=== PATIENT | male | born 1955 | race Caucasian/White ===

== ENCOUNTER 2022-07-31 15:37 | Inpatient (IN) | payer MEDICAID ==
[~2022-07-31 15:37] MED LIST: Iopamidol 370 76% 100 ML VIAL ONE
[2022-07-31] MEDS ORDERED: chlordiazePOXIDE HCl 25 MG CAP ONE (16:04)
[2022-07-31] MEDS ORDERED: Lorazepam 2 MG/ML VIAL ONE (16:04)
[2022-07-31 17:00] LABS: CKMB 9.1 ng/mL (0-6.6)
[2022-07-31] MEDS ORDERED: Acetaminophen 650 MG Suppository PR PRN (17:36)
[2022-07-31] MEDS ORDERED: Ondansetron PF 4 MG/2 ML Vial IVP PRN (17:36)
[2022-07-31] MEDS ORDERED: Lorazepam 2 MG/ML VIAL IM PRN (17:47)
[2022-07-31] MEDS ORDERED: Lorazepam 1 MG TAB PO PRN (17:47)
[2022-07-31] MEDS ORDERED: Electrolyte Replacement Protocol 1 EACH FS SCH (18:00)
[2022-07-31 18:21] LABS: Hemoglobin 10.6 g/dL (13.5-17.5); Mean Corpuscular HGB CONC 32.9 g/dL (32.0-36.0); Mean Corpuscular Hemoglobin 31.3 pg (27.0-33.0); Platelet Count 445 10x3/uL (150-450); RBC Distribution Width 15.1 % (11.5-14.5); Red Blood Cell (RBC) Count 3.39 10x6/uL (4.32-5.72); White Blood Cell (WBC) Count 7.7 10x3/uL (3.5-10.5)
[2022-07-31 18:29] LABS: Phosphorus 3.2 mg/dL (2.3-4.7)
[2022-07-31 18:34] LABS: ALT (SGPT) 32 U/L (8-55); AST (SGOT) 28 U/L (5-34); Albumin 3.6 g/dL (3.4-4.8); Alkaline Phosphatase 121 U/L (40-110); Anion Gap 13 mmol/L (10-20); BUN (Urea Nitrogen) 21 mg/dL (8.4-25.7); Bilirubin, Total 0.5 mg/dL (0.2-1.2); Calc. Creatinine Clearance 0 mL/min (70-130); Calcium 8.8 mg/dL (7.8-10.44); Carbon Dioxide 28 mmol/L (23-31); Chloride 103 mmol/L (98-107); Estimated GFR 42; Globulin 3.4 g/dL (2.4-3.5); Glucose 107 mg/dL (80-115); Lipase 35 U/L (8-78); Magnesium 2.1 mg/dL (1.6-2.6); Potassium 3.2 mmol/L (3.5-5.1); Sodium 141 mmol/L (136-145)
[2022-07-31 18:48] LABS: Lymphocytes 14 % (21-51); Monocytes 15 % (0-10); Neutrophil 71 % (42-75)
[2022-07-31 18:49] LABS: Hypochromia SLIGHT = 6-15 cells (100X) (0-5/hpf); MDiff Complete? YES; Platelet Morphology Comment Appears Adequate
[2022-07-31 18:52] LABS: Syphilis Antibody Nonreactive (Nonreactive); Syphilis Antibody Index 0.11 S/CO (<1.00 Non-Reactive)
[2022-07-31 19:42] LABS: Troponin I 0.088 ng/mL (< 0.028)
[2022-07-31 20:12] LABS: Amphetamine Not Detected (NotDetected); Barbiturates Screen Not Detected (NotDetected); Benzodiazepine Screen Not Detected (NotDetected); Cocaine Metabolite Screen Not Detected (NotDetected); Methadone Not Detected (NotDetected); Methamphetamine Detected (NotDetected); Opiate Screen Not Detected (NotDetected); Oxycodone Screen Not Detected (NotDetected); Phencyclidine (PCP) Not Detected (NotDetected); THC/Cannabinoid Screen Not Detected (NotDetected); Tricyclic Screen Not Detected (NotDetected)
[2022-07-31] MEDS ORDERED: FLU VACC QS2022-23(65YR UP)/PF 240 MCG/0.7 ML SYRINGE IM ONE (20:30)
[2022-07-31] MEDS: Thiamine HCl 200 MG/2 ML VIAL SLOW IVP SCH (20:34)
[2022-07-31] MEDS: Heparin 5,000 UNITS/ML VIAL SC SCH (20:34)
[2022-07-31] MEDS: Lorazepam 1 MG TAB PO SCH (20:38)
[2022-07-31] MEDS ORDERED: Famotidine 20 MG TAB PO SCH ×2 (21:00)
[2022-07-31] MEDS ORDERED: Potassium Chloride 20 MEQ TAB PO SCH (21:00)
[2022-07-31] MEDS: HYDROcodone/Acetaminophen 5/325 mg Tablet PO PRN (21:30)
[2022-07-31 22:47] LABS: Troponin I 0.113 ng/mL (< 0.028)
[2022-08-01] MEDS: Nitroglycerin 50 MG/250 ML BOT 250 ML IVPB PRN ×2 (01:23→04:56)
[2022-08-01] MEDS: Lorazepam 1 MG TAB PO SCH ×4 (03:02→21:59)
[2022-08-01] MEDS: HYDROcodone/Acetaminophen 5/325 mg Tablet PO PRN ×2 (03:42→21:59)
[2022-08-01 03:54] LABS: #Basophils 0.1 10x3/uL (0.0-0.2); #Eosinphils 0.1 10x3/uL (0.0-0.5); #Monocytes 1.6 10x3/uL (0.0-1.1); %Basophils 0.6 % (0.0-2.0); %Eosinophils 0.8 % (0.0-6.0); %Monocytes 14.9 % (0.0-10.0); %Neutrophils 66.4 % (40.0-75.0); Hemoglobin 10.1 g/dL (13.5-17.5); Mean Corpuscular HGB CONC 32.3 g/dL (32.0-36.0); Mean Corpuscular Hemoglobin 30.8 pg (27.0-33.0); Mean Corpuscular Volume 95.4 fl (81.2-95.1); Mean Platelet Volume 8.9 fl (7.4-10.4); Platelet Count 430 10x3/uL (150-450); RBC Distribution Width 15.3 % (11.5-14.5); Red Blood Cell (RBC) Count 3.28 10x6/uL (4.32-5.72); White Blood Cell (WBC) Count 10.5 10x3/uL (3.5-10.5)
[2022-08-01 04:05] LABS: ALT (SGPT) 26 U/L (8-55); AST (SGOT) 26 U/L (5-34); Albumin 3.3 g/dL (3.4-4.8); Alkaline Phosphatase 107 U/L (40-110); Anion Gap 15 mmol/L (10-20); BUN (Urea Nitrogen) 25 mg/dL (8.4-25.7); Bilirubin, Total 0.5 mg/dL (0.2-1.2); Calc. Creatinine Clearance 34 mL/min (70-130); Calcium 8.5 mg/dL (7.8-10.44); Carbon Dioxide 23 mmol/L (23-31); Chloride 107 mmol/L (98-107); Estimated GFR 43; Globulin 3.1 g/dL (2.4-3.5); Glucose 100 mg/dL (80-115); Potassium 3.5 mmol/L (3.5-5.1); Protein, Total 6.4 g/dL (5.8-8.1); Sodium 141 mmol/L (136-145)
[2022-08-01] MEDS ORDERED: Potassium Chloride 20 MEQ TAB PO SCH ×2 (06:00→20:00)
[2022-08-01] MEDS ORDERED: niCARdipine 40MG In NaCl 40 MG/200 ML BAG IVPB SCH (08:15)
[2022-08-01] MEDS ORDERED: Furosemide 40 MG/4 ML VIAL SLOW IVP SCH (08:15)
[2022-08-01] MEDS: Multivit, Therapeutic 1 TAB PO SCH (08:51)
[2022-08-01] MEDS: Heparin 5,000 UNITS/ML VIAL SC SCH ×3 (08:51→20:23)
[2022-08-01] MEDS: Folic Acid 1 MG TAB PO SCH (08:52)
[2022-08-01] MEDS: niCARdipine 25 MG in Sodium Chloride 0.9% 250 ML 250 ML IVPB SCH ×2 (08:52→15:38)
[2022-08-01 15:56] LABS: Anion Gap 12 mmol/L (10-20); BUN (Urea Nitrogen) 17 mg/dL (8.4-25.7); Calc. Creatinine Clearance 43 mL/min (70-130); Calcium 8.9 mg/dL (7.8-10.44); Carbon Dioxide 26 mmol/L (23-31); Chloride 104 mmol/L (98-107); Estimated GFR 57; Glucose 106 mg/dL (80-115); Potassium 3.3 mmol/L (3.5-5.1); Sodium 139 mmol/L (136-145)
[2022-08-01] MEDS ORDERED: Lorazepam 1 MG TAB PO PRN (17:47)
[2022-08-01] MEDS: Thiamine HCl 200 MG/2 ML VIAL SLOW IVP SCH (20:22)
[2022-08-01] MEDS: Famotidine 20 MG TAB PO SCH (20:23)
[2022-08-02] MEDS: Lorazepam 1 MG TAB PO SCH ×3 (03:24→16:40)
[2022-08-02 04:11] LABS: Hemoglobin 11.2 g/dL (13.5-17.5); Mean Corpuscular HGB CONC 32.3 g/dL (32.0-36.0); Mean Corpuscular Hemoglobin 30.9 pg (27.0-33.0); Mean Corpuscular Volume 95.9 fl (81.2-95.1); Mean Platelet Volume 8.9 fl (7.4-10.4); Platelet Count 448 10x3/uL (150-450); RBC Distribution Width 15.1 % (11.5-14.5); Red Blood Cell (RBC) Count 3.62 10x6/uL (4.32-5.72); White Blood Cell (WBC) Count 9.5 10x3/uL (3.5-10.5)
[2022-08-02 04:12] LABS: MDiff Complete? YES; Manual Diff?? YES
[2022-08-02 04:25] LABS: ALT (SGPT) 22 U/L (8-55); AST (SGOT) 22 U/L (5-34); Albumin 3.4 g/dL (3.4-4.8); Alkaline Phosphatase 98 U/L (40-110); Anion Gap 13 mmol/L (10-20); BUN (Urea Nitrogen) 17 mg/dL (8.4-25.7); Bilirubin, Total 0.6 mg/dL (0.2-1.2); Calc. Creatinine Clearance 41 mL/min (70-130); Calcium 8.8 mg/dL (7.8-10.44); Carbon Dioxide 23 mmol/L (23-31); Chloride 105 mmol/L (98-107); Estimated GFR 54; Globulin 3.5 g/dL (2.4-3.5); Glucose 94 mg/dL (80-115); Potassium 3.9 mmol/L (3.5-5.1); Protein, Total 6.9 g/dL (5.8-8.1); Sodium 137 mmol/L (136-145)
[2022-08-02 05:15] LABS: Lymphocytes 25 % (21-51); Monocytes 13 % (0-10); Neutrophil 59 % (42-75); Reactive Lymphocytes 2 % (0-10)
[2022-08-02 05:17] LABS: Anisocytosis SLIGHT = 6-15 cells (100X) (0-5/hpf); Macrocytosis SLIGHT = 6-15 cells (100X) (0-5/hpf); Microcytosis SLIGHT = 6-15 cells (100X) (0-5/hpf); Platelet Morphology Comment Appears Adequate
[2022-08-02] MEDS: niCARdipine 25 MG in Sodium Chloride 0.9% 250 ML 250 ML IVPB SCH (07:25)
[2022-08-02] MEDS: Heparin 5,000 UNITS/ML VIAL SC SCH ×3 (07:49→21:03)
[2022-08-02] MEDS: Multivit, Therapeutic 1 TAB PO SCH (07:50)
[2022-08-02] MEDS: Folic Acid 1 MG TAB PO SCH (07:50)
[2022-08-02] MEDS: HYDROcodone/Acetaminophen 5/325 mg Tablet PO PRN ×2 (08:05→12:26)
[2022-08-02] MEDS ORDERED: Amlodipine 10 MG TAB PO SCH (09:00)
[2022-08-02] MEDS ORDERED: Carvedilol 6.25 MG TAB PO SCH ×2 (12:00→17:00)
[2022-08-02] MEDS ORDERED: Losartan 25 MG TAB PO SCH (14:00)
[2022-08-02] MEDS ORDERED: Lorazepam 1 MG TAB PO PRN (17:47)
[2022-08-02] MEDS: Thiamine HCl 200 MG/2 ML VIAL SLOW IVP SCH (19:30)
[2022-08-02] MEDS: Famotidine 20 MG TAB PO SCH (21:03)
[2022-08-02] MEDS: Lorazepam 0.5 MG TAB PO SCH (21:03)
[2022-08-03] MEDS: hydrALAZINE 20 MG/ML VIAL SLOW IVP PRN ×2 (00:52→03:46)
[2022-08-03] MEDS: Lorazepam 0.5 MG TAB PO SCH ×2 (03:46→10:30)
[2022-08-03 04:07] LABS: Anion Gap 14 mmol/L (10-20); BUN (Urea Nitrogen) 24 mg/dL (8.4-25.7); Calc. Creatinine Clearance 45 mL/min (70-130); Calcium 8.9 mg/dL (7.8-10.44); Carbon Dioxide 19 mmol/L (23-31); Chloride 105 mmol/L (98-107); Estimated GFR 53; Glucose 96 mg/dL (80-115); Sodium 134 mmol/L (136-145)
[2022-08-03 04:08] LABS: #Basophils 0.1 10x3/uL (0.0-0.2); #Eosinphils 0.1 10x3/uL (0.0-0.5); #Monocytes 2.1 10x3/uL (0.0-1.1); #Neutrophils 8.5 10x3/uL (1.5-8.4); %Basophils 0.5 % (0.0-2.0); %Eosinophils 0.6 % (0.0-6.0); %Lymphocytes 15.8 % (18.0-47.0); %Monocytes 16.6 % (0.0-10.0); %Neutrophils 66.2 % (40.0-75.0); Hemoglobin 11.1 g/dL (13.5-17.5); Mean Corpuscular Hemoglobin 31.3 pg (27.0-33.0); Mean Corpuscular Volume 94.6 fl (81.2-95.1); Mean Platelet Volume 8.9 fl (7.4-10.4); Platelet Count 491 10x3/uL (150-450); RBC Distribution Width 14.6 % (11.5-14.5); Red Blood Cell (RBC) Count 3.55 10x6/uL (4.32-5.72); White Blood Cell (WBC) Count 12.9 10x3/uL (3.5-10.5)
[2022-08-03 05:00] VITALS: BMI 17.4
[2022-08-03] MEDS ORDERED: Carvedilol 12.5 MG TAB PO SCH (08:00)
[2022-08-03] MEDS: Multivit, Therapeutic 1 TAB PO SCH (08:49)
[2022-08-03] MEDS: Heparin 5,000 UNITS/ML VIAL SC SCH (08:49)
[2022-08-03] MEDS: Folic Acid 1 MG TAB PO SCH (08:49)
[2022-08-03] MEDS ORDERED: Losartan 25 MG TAB PO SCH (09:00)
[2022-08-03 16:53] VITALS: BP 156/92; TEMP 98.4
[2022-08-03] MEDS ORDERED: Lorazepam 0.5 MG TAB PO PRN (17:47)
[2022-08-03] MEDS ORDERED: Thiamine 100 MG TAB PO SCH (20:00)
[2022-08-03] MEDS ORDERED: Amlodipine 10 MG TAB PO SCH (21:00)
== END 2022-08-03 17:25 | disposition home or self-care (01) | DRG 280 ==
LOC: CSHERS 15:37 → SUATTDRO 15:37 → CSHICU 17:24 → CSHTELE 08-03 13:01
PROVIDERS: ADMIT Internal Medicine; ATTEND Internal Medicine
DX: I16.1 Hypertensive emergency (principal); I21.A1 Myocardial infarction type 2; I50.31 Acute diastolic (congestive) heart failure; J96.01 Acute respiratory failure with hypoxia; N17.9 Acute kidney failure, unspecified; I13.0 Hypertensive heart and chronic kidney disease with heart failure and stage 1 through stage 4 chronic kidney disease, or unspecified chronic kidney disease; F15.10 Other stimulant abuse, uncomplicated; J43.9 Emphysema, unspecified; N18.9 Chronic kidney disease, unspecified; F10.10 Alcohol abuse, uncomplicated; F17.210 Nicotine dependence, cigarettes, uncomplicated; Z91.14 Patient's other noncompliance with medication regimen; Z71.51 Drug abuse counseling and surveillance of drug abuser
CPT/HCPCS: 36415; 71045; 71275; 80048; 80053; 80306; 82553; 83690; 83735; 84100; 84443; 85025; 86780; 93005; 93010; 93306; 94760; 96365; 96366; 96375; J0360; J1644; J1940; J2060; J3411; J7050; Q9967